=== PATIENT | male | born 1985 | race Caucasian/White ===

== ENCOUNTER 2020-04-18 14:55 | Emergency (ER) | payer OTHER ==
[2020-04-18 15:09] VITALS: BP 121/64
--- NOTE | 2020-04-18 15:42 | ED Physician Documentation ---
PD HPI LOWER EXT INJURY - Stated complaint Stated Complaint: RT FOOT INJ - Chief complaint Chief Complaint: Trauma Ext - History obtained from History obtained from: Patient - History of Present Illness PD HPI LOW EXT INJURY LOCATION: Right, Ankle, Foot Type of injury: Fall Where injury occurred: Work Timing - onset: How many hours ago (2) Improved by: Rest, Immobilization Worsened by: Moving, Palpating Associated symptoms: No: Weakness, Numbness Contributing factors: No: Prior ortho surgery - Additional information Additional information: 34 year old male here with right foot and ankle pain after a fall from the ladder at work this afternoon. he fell on an inverted foot. no hx of previous injury. bearing partial weight. swelling on lateral side of foot and ankle Review of Systems Constitutional: denies: Fever Eyes: denies: Loss of vision Ears: denies: Loss of hearing Cardiac: denies: Chest pain / pressure, Palpitations Respiratory: denies: Dyspnea, Cough GI: denies: Abdominal Pain Skin: denies: Rash, Lesions Musculoskeletal: reports: Extremity pain, Joint pain Neurologic: denies: Syncope, Seizure, Confused, Altered mental status, Headache, Head injury, LOC PD PAST MEDICAL HISTORY - Past Medical History Past Medical History: No - Past Surgical History Past Surgical History: No - Allergies Allergies/Adverse Reactions: Allergies Allergy/AdvReac Type Severity Reaction Status Date / Time No Known Drug Allergies Allergy Verified 04/18/20 15:09 - Social History Does the pt smoke?: No Smoking Status: Never smoker Does the pt drink ETOH?: No Does the pt have substance abuse?: No - Immunizations Immunizations are current?: Yes - POLST Patient has POLST: No PD ED PE NORMAL - General General: Alert and oriented X 3, No acute distress, Well developed/nourished - HEENT HEENT: Atraumatic, PERRL, EOMI - Derm Derm: Normal color, Warm and dry - Extremities Extremities: No deformity. No: No tenderness to palpate (Tenderness right lateral foot. Mild swelling but no ecchymosis. Full range of motion of foot and ankle in all planes) Results - Vitals Vitals: Vital Signs - 24 hr 04/18/20 15:07 Temperature 36.9 C Heart Rate 72 Respiratory 16 Rate Blood Pressure 121/64 O2 Saturation 98 Oxygen O2 Source Room air - Rads (name of study) right foot Radiology: Final report received (Nondisplaced incomplete fracture involving lateral portion of proximal fifth metatarsal shaft) Procedures - Splint (location) right foot Splint applied by: Tech Type of splint: Fiberglass, Short leg, Other (3 sided short leg) Other: Patient tolerated well, No complications, Neurovascular intact, Crutches provided PD MEDICAL DECISION MAKING - ED course Complexity details: reviewed results, re-evaluated patient, d/w patient ED course: 34-year-old male here with aToday at work. of the proximal fifth metatarsal after a fall from a ladder that occurred - This is an incomplete and nondisplaced fracture. He was placed in a 3 sided short leg posterior splint. He will be referred to orthopedics in follow-up. Departure - Departure Disposition: 01 Home, Self Care Clinical Impression: Fracture of 5th metatarsal Qualifiers: Encounter type: initial encounter Fracture type: closed Fracture alignment: nondisplaced Laterality: right Qualified Code(s): S92.354A - Nondisplaced fracture of fifth metatarsal bone, right foot, initial encounter for closed fracture Clinical Impression: (Ruled Out): Metatarsal stress fracture of right foot Condition: Stable Instructions: ED Fx Foot Ch Follow-Up: [facility] [Provider Group] Comments: 34-year-old male here with right foot pain following a fall off a ladder at work. X-ray shows a nondisplaced partial fifth metatarsal fracture. Patient is placed in a 3 sided posterior short leg splint. He will be referred to orthopedics for follow-up. Limited amount of [place] ordered for pain. Advise close follow-up with primary care doctor as well.
--- NOTE | 2020-04-18 16:35 | XRAY Report ---
PROCEDURE: Ankle 3 View RT INDICATIONS: r/o f/x; s/p inversion injury TECHNIQUE: 3 views of the ankle were acquired. COMPARISON: None FINDINGS: Bones: No fractures or dislocations. Ankle mortise is normally aligned. No suspicious bony lesions . Soft tissues: No tibiotalar joint effusion. Achilles tendon appears normal. Mild ankle soft tissue swelling is seen. IMPRESSION: Mild ankle soft tissue swelling. No acute ankle fracture or dislocation. Reviewed by: Darius Fitzpatrick MD on 04/18/2020 4:34 PM PDT Approved by: Darius Fitzpatrick MD on 04/18/2020 4:34 PM PDT Station ID: [id number]
--- NOTE | 2020-04-18 16:36 | XRAY Report ---
PROCEDURE: Foot 3 View RT INDICATIONS: r/o fx; s/p fall with inversion injury TECHNIQUE: 3 views of the foot were acquired. COMPARISON: None FINDINGS: Bones: Incompletely and nondisplaced transverse fracture involving proximal shaft/base of fifth metat arsal bone is seen. No other fracture or dislocation. No suspicious bony lesions. Soft tissues: No tibiotalar joint effusion. Achilles tendon appears normal. IMPRESSION: Nondisplaced incomplete fracture involving lateral portion of proximal fifth metatarsal shaft. Reviewed by: Darius Fitzpatrick MD on 04/18/2020 4:34 PM PDT Approved by: Darius Fitzpatrick MD on 04/18/2020 4:34 PM PDT Station ID: [id number]
== END 2020-04-18 17:35 | disposition home or self-care (01) ==
LOC: ED 14:55
DX: S92.354A Nondisplaced fracture of fifth metatarsal bone, right foot, initial encounter for closed fracture (principal); W11.XXXA Fall on and from ladder, initial encounter; Y99.0 Civilian activity done for income or pay
CPT/HCPCS: 29515; 99282

== ENCOUNTER 2020-05-23 07:32 | Outpatient (CLI) | payer OTHER, MEDICAID ==
--- NOTE | 2020-05-24 08:52 | XRAY Report ---
PROCEDURE: Foot 3 View RT INDICATIONS: RIGHT FOOT FRACTURE TECHNIQUE: 3 views of the foot were acquired. COMPARISON: 04/18/2020 FINDINGS: Bones: There is increased diastases at patient's known fifth metatarsal base fracture site now measur es up to 1.4 mm in width. Adjacent periosteal reaction is seen. No new fracture or dislocation. No griffin spicious bony lesions. Soft tissues: No tibiotalar joint effusion. Achilles tendon appears normal. IMPRESSION: Healing proximal fifth metatarsal shaft fracture site with callus formation. There is slight increase d diastases at fracture site now measures up to 1.4 mm in width. No new fracture or dislocation. Righ t foot alignment remains anatomic. Reviewed by: Darius Fitzpatrick MD on 05/23/2020 9:57 AM VERONICA Approved by: Darius Fitzpatrick MD on 05/23/2020 9:57 AM VERONICA Station ID: [id number]
== END 2020-05-23 23:59 | disposition home or self-care (01) ==
LOC: DI.WCP 07:32
PROVIDERS: ATTEND Physician Assistant
DX: S92.351D Displaced fracture of fifth metatarsal bone, right foot, subsequent encounter for fracture with routine healing (principal)

== ENCOUNTER 2020-06-20 14:00 | Outpatient (CLI) | payer OTHER, MEDICAID ==
--- NOTE | 2020-06-20 14:26 | XRAY Report ---
PROCEDURE: Foot 3 View RT INDICATIONS: RIGHT FOOT FRACTURE TECHNIQUE: 3 nonweightbearing views of the foot were acquired. COMPARISON: Right foot radiographs dated 05/23/2020 FINDINGS: Bones: A minimally displaced fracture is again seen in the proximal shaft of the fifth metatarsal wit h mild callus formation compatible with mild progressive healing changes. A small os trigonum is inci dentally noted. Soft tissues: No tibiotalar joint effusion. Achilles tendon appears normal. IMPRESSION: Mild progressive healing changes involving the previously seen proximal fifth metatarsal shaft fractu re. Reviewed by: Chet Martines MD on 06/20/2020 2:25 PM PDT Approved by: Chet Martines MD on 06/20/2020 2:25 PM PDT Station ID: [id number]
== END 2020-06-20 23:59 | disposition home or self-care (01) ==
LOC: DI.WCP 14:00
PROVIDERS: ATTEND Physician Assistant
DX: S92.351D Displaced fracture of fifth metatarsal bone, right foot, subsequent encounter for fracture with routine healing (principal)

== ENCOUNTER 2020-07-18 15:11 | Outpatient (CLI) | payer OTHER ==
--- NOTE | 2020-07-18 15:15 | XRAY Report ---
PROCEDURE: Foot 3 View RT INDICATIONS: R FOOT FX TECHNIQUE: 3 views of the foot were acquired. COMPARISON: 70 respirations 20, and 06/20/2020 FINDINGS: Bones: Transverse fracture of the proximal right fifth metatarsal noted. Callus and bridging trabecul ae have formed at the fracture site compatible with mild evolution of healing. Fracture is healing in anatomic alignment. Soft tissues: No tibiotalar joint effusion. Achilles tendon appears normal. IMPRESSION: Mild progression of healing of fifth metatarsal fracture. Reviewed by: Shea Lucio MD, PhD on 07/18/2020 3:13 PM PDT Approved by: Shea Lucio MD, PhD on 07/18/2020 3:13 PM PDT Station ID: [id number]
== END 2020-07-18 23:59 | disposition home or self-care (01) ==
LOC: DI.WCP 15:11
PROVIDERS: ATTEND Physician Assistant
DX: S92.354A Nondisplaced fracture of fifth metatarsal bone, right foot, initial encounter for closed fracture (principal)